=== PATIENT | male | born 1945 | race Caucasian/White ===

== ENCOUNTER 2016-04-27 09:57 | Emergency (ER) | payer MEDICARE | END 2016-04-27 14:58 | disposition home or self-care (01) | LOC: ER 09:57 | DX: K59.00 Constipation, unspecified (principal); S30.0XXA Contusion of lower back and pelvis, initial encounter; W01.0XXA Fall on same level from slipping, tripping and stumbling without subsequent striking against object, initial encounter; Y92.012 Bathroom of single-family (private) house as the place of occurrence of the external cause; I69.398 Other sequelae of cerebral infarction; R26.9 Unspecified abnormalities of gait and mobility; Z87.891 Personal history of nicotine dependence | CPT/HCPCS: 71010; 73700; 74000 ==

== ENCOUNTER 2016-05-05 11:13 | Emergency (ER) | payer MEDICARE ==
[2016-05-05] MEDS ORDERED: humuLIN REG INSULIN ONE (11:43)
[2016-05-05] MEDS ORDERED: SODIUM CHLORIDE 0.9% 100 ML IV ONE (14:58)
[2016-05-05] MEDS ORDERED: CEFTRIAXONE 1 GM VIAL ONE (14:58)
== END 2016-05-05 19:22 | disposition home or self-care (01) ==
LOC: ER 11:13
DX: E11.65 Type 2 diabetes mellitus with hyperglycemia (principal); F33.1 Major depressive disorder, recurrent, moderate; N30.00 Acute cystitis without hematuria; I10 Essential (primary) hypertension; I48.91 Unspecified atrial fibrillation; Z87.891 Personal history of nicotine dependence; Z86.73 Personal history of transient ischemic attack (TIA), and cerebral infarction without residual deficits
CPT/HCPCS: 36415; 80053; 80307; 81001; 82947; 84439; 84443; 85025; 85610; 87077; 87088; 87186; 96365; 96372; 99285; G0480; J0696; 80320; 80329